=== PATIENT | male | born 1980 | race Caucasian/White ===

== ENCOUNTER 2024-02-03 14:33 | Emergency (ER) | payer MEDICARE, MEDICAID, SELFPAY ==
[2024-02-03 14:34] VITALS: BP 136/83; PULSE 108; RESP 16; TEMP 35.9; O2SAT 96
[2024-02-03 14:51] VITALS: BMI 33.6
--- NOTE | 2024-02-03 15:15 | RAD_ITS ---
STUDY: X-RAY - RIGHT FOOT CLINICAL: Male, 43 years old. pain TECHNIQUE: 3 view(s) of the foot. COMPARISON: None. FINDINGS: Normal talus, calcaneus, and tarsal bones. Normal visualized subtalar, talonavicular, calcaneocuboid, tarsal and tarsometatarsal articulations. Normal metatarsi. Normal metatarsophalangeal joint of the great toe. Normal tibial and fibular sesamoid bones. Normal interphalangeal joint of the great toe. Normal phalanges of the great toe. Normal second through fifth metatarsophalangeal joints. Normal interphalangeal joints and phalanges of the lesser toes. The soft tissue structures are unremarkable. RAD/Foot min 3 Views IMPRESSION: Normal x-ray examination of the foot. Electronically Signed: Niles Silvestre MD at 16:43 EDT ,
--- NOTE | 2024-02-03 15:22 | ED.VIS.LOWEX ---
HPI History of Present Illness Chief Complaint: Lower Extremity Injury Informant: patient and parent Narrative Narrative: Here with mother history of schizoaffective disorder and medication. Ports nontraumatic right foot pain for 2 days. History of gout on allopurinol. However denies pain in the great toes or ankle. Pain to the lateral foot. No medications taken. Reports 4 weeks ago had swelling both legs, this has resolved. He denied any issues with urination or decreased output. Denies change in color of urine. Swelling has improved since then. Also reports history of esophagitis and gastritis. He is on medications for this. Prior similar symptoms: Yes PFSH PFSH Home Medications ?Medication ?Instructions ?Recorded ?Last Taken ?Type No Known/Unobtainable [No Known 12/20/15 Unknown History Home Medications] Allergy/AdvReac Type Severity Reaction Status Date / Time Environmental Allergies: Allergy Mild PT UNSURE Verified 02/03/24 14:34 Uncoded (dust) OF REACTION peanut (peanuts) AdvReac Mild Diarrhea Verified 02/03/24 14:34 Social History Smoking Status: Never smoker ROS ROS ED Constitutional Constitutional ED: Denies chills, fever(s) or sweats Eyes Eyes: Denies change in vision ENT ENT ED: Denies dysphagia or sore throat Cardiovascular Cardiovascular: Reports leg edema; Denies chest pain, palpitations or racing heartbeat Respiratory/Chest Respiratory/Chest: Denies cough, dyspnea or dyspnea on exertion Gastrointestinal Gastrointestinal: Denies abdominal pain, diarrhea, nausea or vomiting Genitourinary Genitourinary ED: Denies dysuria, hematuria or urinary frequency Musculoskeletal Musculoskeletal: Reports extremity pain; Denies back pain or neck pain Integumentary Denies rash or wounds Neurologic Neurologic: Denies headache(s), paresthesias or weakness EXAM Physical Exam Const Vital Signs: 02/03/24 14:34 Temperature 96.7 F L Temperature Source Temporal Pulse Rate 108 H Respiratory Rate 16 Blood Pressure 136/83 H Blood Pressure Mean 100 Pulse Ox 96 Oxygen Delivery Method Room Air Positive well nourished and well developed General Appearance ED: well developed and NAD HEENT Reports moist mucous membranes normocephalic and atraumatic Eyes EOMs intact bilaterally and conjunctivae normal General Eye ED: Yes normal appearance of both eyes Neck no lymphadenopathy and supple General: Negative for tenderness Chest Wall Chest: Negative for tenderness Resp normal respiratory effort and normal air movement Effort and Inspection: symmetric chest movement; Negative for respiratory distress Cardio regular rate, regular rhythm and no murmurs Peripheral Pulses: pulses 2+ throughout GI normal to inspection, nondistended, normoactive bowel sounds and non-tender Palpation: Negative for guarding or rebound tenderness present Back/Spine no CVA tenderness and no thoracic nor lumbar tenderness Extremity Extremity Narrative: Minimal edema bilateral lower extremities. Right lower extremity: No calf tenderness no fibular ankle tenderness. There is tender palpation fifth base with slight swelling. No midfoot tenderness. No great toe tenderness. Skin intact. Neurovascular tact. General Extremety ED: Yes edema and tenderness General Extremity: edema Neuro oriented x3 and no sensory deficits noted Sensorium / Orientation: awake and alert Skin no rashes or lesions noted and no wounds MDM MDM MDM Narrative Medical decision making narrative: Interventions / MDM: Differential diagnosis: Sprain, contusion Diagnosis considered but do not suspect: No clinical gout region. Fracture however x-ray negative My EKG interpretation: N/A Imaging independently reviewed and interpreted by myself: 3 view right foot x-ray: No fracture noted. External documents reviewed: N/A Test considered but not ordered:N/A ED course: Patient treated Tylenol right foot x-ray ordered due to tenderness fifth base region of the foot. No clinical gout. X-ray negative. Cyrus wrap postop shoe and crutches provided. He will continue Tylenol. Outpatient follow-up. All questions were answered. Re-evaluation: stable Disposition discussed with patient/family/significant other: Patient and mother Case discussed with consulting clinician: N/A This note was generated with [employer] dictation software. It may contain incorrect words, spelling, and punctuation that were not noted in checking the note before signing. Radiography Diagnostic Testing: Clinical Impression(s) from Imaging Studies Foot X-Ray 02/03/24 15:15 IMPRESSION: Normal x-ray examination of the foot. Electronically Signed: Niles Silvestre MD at 16:43 EDT Reading Location ID and State: [facility] / [place] Tel , Service support , Discharge Plan Triage Chief Complaint: Lower Extremity Injury ED Provider: Vipin Carrasco Dx/Rx/DC Orders Clinical Impression: Right foot sprain, Foot pain, right Instructions: ED Foot Sprain Prescriptions: No Action No Known Home Medications Primary Care Provider: Ilana Graham Referrals: Aleena Sinclair [Non-Staff] - 1 Week Care Physician,No Primary [Non-Staff] - Activity Restrictions/Additional Instructions: X-rays negative. Use Cyrus wrap postop shoe and crutches as needed for support. Continue Tylenol up to 1 g every 6 hours as needed for pain. Follow-up with your doctor. Print Language: British Disposition Disposition: Home, Self Care Discharge Date/Time: 02/03/24 16:13
[2024-02-03] MEDS: Acetaminophen 500 MG Tablet 1000 MG PO (15:23)
== END 2024-02-03 16:13 | disposition home or self-care (01) ==
PROVIDERS: Emergency Provider Emergency Medicine; Visit Provider Emergency Medicine
DX: S93.601A Unspecified sprain of right foot, initial encounter (principal); X58.XXXA Exposure to other specified factors, initial encounter
CPT/HCPCS: 73630; 99284